=== PATIENT | female | born 1990 | race Caucasian/White ===

== ENCOUNTER 2017-11-28 09:43 | Emergency (ER) | payer OTHER, SELFPAY ==
[2017-11-28 11:53] LABS: Urine Blood NEGATIVE (NEG); Urine Glucose NEGATIVE (NEG); Urine Protein NEGATIVE (NEG)
[2017-11-28 11:56] LABS: Urine Bacteria <20 /HPF (<20); Urine Culture Reflex Order NOT NEEDED; Urine RBC NONE SEEN /HPF (NONE SEEN)
[2017-11-28] MEDS ORDERED: ONDANSETRON 4 MG/2 ML VIAL ONE (11:57)
[2017-11-28] MEDS ORDERED: FENTANYL CITR 100 MCG/2 ML ONE (11:57)
[2017-11-28] MEDS ORDERED: NA CHLORIDE 0.9% 1,000 ML ONE ×2 (11:57)
[2017-11-28] MEDS ORDERED: CIPROFLOXACIN 400mg IV 400 MG/200 ML BAG IV ONE (11:58)
[2017-11-28] MEDS ORDERED: METRONIDAZOLE 500mg IVPB 500 MG/100 ML BAG IV ONE (11:58)
[2017-11-28 12:03] LABS: Absolute Lymphocytes (CBC) 2.6 K/uL (0.7-4.9); Absolute Monocytes 0.4 K/uL (0.1-1.3); Basophils % 0.6 % (0-1.3); Eosinophils % 1.1 % (0-4.4); Lymphocytes % 21.2 % (15.3-44.8); MCH 30.4 pg (27.0-35.0); MCV 90.8 fL (80-100); MPV 9.3 fL (7.6-11.3); Monocytes % 3.6 % (3.3-12.3); RBC Red Blood Cell Count 4.41 M/uL (3.86-4.86)
[2017-11-28 12:07] LABS: Bicarbonate 24 mEq/L (21-31); Glucose Level 93 mg/dL (65-120); Lipase 14 U/L (22-51); Potassium 4.6 mEq/L (3.6-5.0); Sodium Level 136 mEq/L (135-145)
[2017-11-28 12:14] LABS: ALT/SGPT 12 IU/L (10-60); AST/SGOT 13 IU/L (10-42); Albumin 4.4 g/dL (3.2-5.5); Alkaline Phosphatase 79 IU/L (42-121); Amylase Level 32 U/L (28-100); BUN Blood Urea Nitrogen 12 mg/dL (6-20); Bilirubin Direct < 0.1 mg/dL (0-0.2); Bilirubin Total 0.5 mg/dL (0.3-1.2); Protein, Total 7.7 g/dL (6.0-8.3)
--- NOTE | 2017-11-28 14:10 | RAD REPORT ---
EXAM DESCRIPTION: CTAbdomen Pelvis W Contrast - 11/28/2017 2:01 pm CLINICAL HISTORY: Abdominal pain. Diarrhea. COMPARISON: None. TECHNIQUE: Biphasic CT imaging of the abdomen and pelvis was performed with 100 ml non-ionic IV cont rast. All CT scans are performed using dose optimization technique as appropriate and may include automated exposure control or mA/KV adjustment according to patient size. FINDINGS: The lung bases are clear. The liver, spleen, pancreas, adrenal glands and kidneys are within normal limits. No bowel obstruction, free air, free fluid or abscess. The appendix appears surgically absent. No e vidence of significant lymphadenopathy. No suspicious bony findings. IMPRESSION: No acute intra-abdominal or pelvic finding.
--- NOTE | 2017-11-28 14:23 | EDPHYS ---
Physician Documentation [facility] Name: Macey Sands Age: 27 yrs Sex: Female : 1990 Arrival Date: 11/28/2017 Time: 09:47 Bed 15 Private MD: ED Physician Dev Vasquez HPI: 11/28 11:46 This 27 yrs old Female presents to ER via Wheelchair with complaints of lauren Bloody Stools, Back Pain. 11:46 The patient presents with pain that is chronic. lauren ENGINE BOSS: 10:22 LMP 11/25/2017 tw2 Historical: - Allergies: 10:22 No Known Allergies; tw2 - Home Meds: 10:22 None [Active]; tw2 - PMHx: 10:22 Degenerative disc disease; scoliosis; tw2 - PSHx: 10:22 ; Appendectomy; tw2 - Immunization history:: Adult Immunizations up to date. - Social history:: Smoking status: Patient uses tobacco products, 5-10 cigarettes a day. ROS: 11:48 Constitutional: Negative for fever, chills, and weight loss, Eyes: Negative for injury, lauren pain, redness, and discharge, ENT: Negative for injury, pain, and discharge, Neck: Negative for injury, pain, and swelling, Cardiovascular: Negative for chest pain, palpitations, and edema, Respiratory: Negative for shortness of breath, cough, wheezing, and pleuritic chest pain, Back: Negative for injury and pain, : Negative for injury, bleeding, discharge, and swelling, MS/Extremity: Negative for injury and deformity, Skin: Negative for injury, rash, and discoloration, Neuro: Negative for headache, weakness, numbness, tingling, and seizure, Psych: Negative for depression, anxiety, suicide ideation, homicidal ideation, and hallucinations, Allergy/Immunology: Negative for hives, rash, and allergies, Endocrine: Negative for neck swelling, polydipsia, polyuria, polyphagia, and marked weight changes, Hematologic/Lymphatic: Negative for swollen nodes, abnormal bleeding, and unusual bruising. 11:48 Abdomen/GI: Positive for abdominal pain, rectal bleeding, of the right upper quadrant and right lower quadrant. Exam: 11:48 Constitutional: This is a well developed, well nourished patient who is awake, alert, lauren and in no acute distress. Head/Face: Normocephalic, atraumatic. Eyes: Pupils equal round and reactive to light, extra-ocular motions intact. Lids and lashes normal. Conjunctiva and sclera are non-icteric and not injected. Cornea within normal limits. Periorbital areas with no swelling, redness, or edema. ENT: Nares patent. No nasal discharge, no septal abnormalities noted. Tympanic membranes are normal and external auditory canals are clear. Oropharynx with no redness, swelling, or masses, exudates, or evidence of obstruction, uvula midline. Mucous membranes moist. Neck: Trachea midline, no thyromegaly or masses palpated, and no cervical lymphadenopathy. Supple, full range of motion without nuchal rigidity, or vertebral point tenderness. No Meningismus. Chest/axilla: Normal chest wall appearance and motion. Nontender with no deformity. No lesions are appreciated. Cardiovascular: Regular rate and rhythm with a normal S1 and S2. No gallops, murmurs, or rubs. Normal PMI, no JVD. No pulse deficits. Respiratory: Lungs have equal breath sounds bilaterally, clear to auscultation and percussion. No rales, rhonchi or wheezes noted. No increased work of breathing, no retractions or nasal flaring. Back: No spinal tenderness. No costovertebral tenderness. Full range of motion. Female : Normal external genitalia. Skin: Warm, dry with normal turgor. Normal color with no rashes, no lesions, and no evidence of cellulitis. MS/ Extremity: Pulses equal, no cyanosis. Neurovascular intact. Full, normal range of motion. Neuro: Awake and alert, GCS 15, oriented to person, place, time, and situation. Cranial nerves II-XII grossly intact. Motor strength 5/5 in all extremities. Sensory grossly intact. Cerebellar exam normal. Normal gait. Psych: Awake, alert, with orientation to person, place and time. Behavior, mood, and affect are within normal limits. 11:48 Abdomen/GI: Inspection: abdomen appears normal, Bowel sounds: Palpation: mild abdominal tenderness, in the right upper quadrant and right lower quadrant. Vital Signs: 10:22 BP 125 / 82; Pulse 70; Resp 16; Temp 97.6; Pulse Ox 99% on R/A; Weight 83.91 kg (R); tw2 Height 5 ft. 3 in. (160.02 cm) (R); Pain 4/10; 11:23 BP 103 / 77; Pulse 60; Resp 17; Pulse Ox 98% on R/A; ae1 14:26 BP 100 / 69; Pulse 63; Resp 16; Pulse Ox 98% on R/A; ae1 10:22 Body Mass Index 32.77 (83.91 kg, 160.02 cm) tw2 MDM: 10:59 Patient medically screened. [facility] 12:30 Data reviewed: vital signs, nurses notes, lab test result(s), EKG, radiologic studies, [facility] CT scan, plain films. 11/28 11:23 Order name: Amylase, Serum ae1 11/28 11:23 Order name: Basic Metabolic Panel ae1 11/28 11:23 Order name: CBC with Diff; Complete Time: 12:19 ae1 11/28 11:23 Order name: Creatinine for Radiology; Complete Time: 12:19 ae1 11/28 11:23 Order name: Hepatic Function; Complete Time: 12:19 ae1 11/28 11:23 Order name: Lipase; Complete Time: 12:19 ae1 11/28 11:23 Order name: Urine Microscopic Only; Complete Time: 12:19 ae1 11/28 11:24 Order name: Amylase Level; Complete Time: 12:19 EDMS 11/28 11:24 Order name: Basic Metabolic Panel; Complete Time: 12:19 EDMS 11/28 11:40 Order name: Urine Dipstick--Ancillary (enter results); Complete Time: 12:19 ag 11/28 11:40 Order name: Urine --Ancillary (enter results); Complete Time: 12:19 ag 11/28 11:45 Order name: CT Abd/Pelvis - W/Contrast; Complete Time: 14:22 lauren 11/28 11:23 Order name: IV Saline Lock; Complete Time: 11:24 ae1 11/28 11:23 Order name: Labs collected and sent; Complete Time: 11:49 ae1 11/28 11:23 Order name: Urine Dipstick-Ancillary (obtain specimen); Complete Time: 11:49 ae1 Administered Medications: 12:00 Drug: NS 0.9% 1000 ml Route: IV; Rate: 1 bolus; Site: right antecubital; ae1 12:01 Drug: Zofran 4 mg Route: IVP; Site: right antecubital; ae1 14:28 Follow up: Response: No adverse reaction ae1 12:03 Drug: fentaNYL (PF) 25 mcg Route: IVP; Site: right antecubital; ae1 14:27 Follow up: Response: Pain is decreased ae1 12:07 Drug: Flagyl 500 mg Volume: 100 ml; Route: IVPB; Rate: 200 ml/hr; Infused Over: 30 ae1 mins; Site: right antecubital; 12:27 Drug: Cipro 400 mg Volume: 200 ml; Route: IVPB; Infused Over: 60 mins; Site: right ae1 antecubital; Point of Care Testing: Guaiac: 12:30 Stool Guaiac: Negative; Stool Hemoccult Control: Pass; lauren Disposition: 11/28/17 14:23 Discharged to Home. Impression: Abdominal tenderness, Gastrointestinal hemorrhage, unspecified, Elevated white blood cell count. - Condition is Stable. - Discharge Instructions: Abdominal Pain, Adult, Gastrointestinal Bleeding, Abdominal Pain, Adult, [id number], Gastrointestinal Bleeding, [id number]. - Prescriptions for Bentyl 20 mg Oral Tablet - take 1 tablet by ORAL route every 6 hours As needed; 20 tablet. Flagyl 500 mg Oral Tablet - take 1 tablet by ORAL route every 8 hours for 10 days; 21 tablet. Pepcid 20 mg Oral Tablet - take 1 tablet by ORAL route every 12 hours for 10 days; 20 tablet. Zofran 4 mg Oral Tablet - take 1 tablet by ORAL route every 12 hours As needed; 20 tablet. Cipro 500 mg Oral Tablet - take 1 tablet by ORAL route every 12 hours for 7 days; 14 tablet. - Medication Reconciliation Form, Thank You Letter, Antibiotic Education, Prescription Opioid Use, Family Work Release form. - Follow up: Private Physician; When: 2 - 3 days; Reason: Recheck today's complaints, Continuance of care, Re-evaluation by your physician. Follow up: Rivera England; When: 2 - 3 days; Reason: Recheck today's complaints, Re-evaluation by your physician. - Problem is new. - Symptoms have improved. Signatures: Dispatcher [employer] Dev Gabriel MD MD cha Wise, Tara, RN RN tw2 Chapincito Elder RN RN ae1 Corrections: (The following items were deleted from the chart) 14:10 11:24 TYPE AND SCREEN+[id number] ordered. EDMS EDMS
--- NOTE | 2017-11-28 14:23 | ER ---
Nurse's Notes [facility] Name: Macey Sands Age: 27 yrs Sex: Female : 1990 Arrival Date: 11/28/2017 Time: 09:47 Bed 15 Private MD: Diagnosis: Abdominal tenderness;Gastrointestinal hemorrhage, unspecified;Elevated white blood cell count Presentation: 11/28 10:20 Presenting complaint: Patient states: "for the past 3 times today it has been diarrhea tw2 and clots of blood, i ended my period 3 days ago but this is different". Transition of care: patient was not received from another setting of care. Onset of symptoms. Care prior to arrival: None. 10:20 Method Of Arrival: Wheelchair tw2 10:20 Acuity: JANICE 3 tw2 Triage Assessment: 10:22 General: Appears in no apparent distress. well groomed, Behavior is calm, cooperative, tw2 appropriate for age. Pain: Complains of pain in left low back and right low back. GI: Abdomen is flat, non-distended. OIL AGENT: 10:22 LMP 11/25/2017 tw2 Historical: - Allergies: 10:22 No Known Allergies; tw2 - Home Meds: 10:22 None [Active]; tw2 - PMHx: 10:22 Degenerative disc disease; scoliosis; tw2 - PSHx: 10:22 ; Appendectomy; tw2 - Immunization history:: Adult Immunizations up to date. - Social history:: Smoking status: Patient uses tobacco products, 5-10 cigarettes a day. Screenin:52 Abuse screen: Denies threats or abuse. Nutritional screening: No deficits noted. ae1 Tuberculosis screening: No symptoms or risk factors identified. Fall Risk None identified. Assessment: 11:49 General: Appears uncomfortable, Behavior is cooperative, anxious. Pain: Complains of ae1 pain in posterior aspect of right lateral abdomen and right upper quadrant. Neuro: Level of Consciousness is awake, alert, obeys commands, Oriented to person, place, time, situation, Reports dizziness. Cardiovascular: Patient's skin is warm and dry. Respiratory: Airway is patent Respiratory effort is even, unlabored, Respiratory pattern is regular, symmetrical, Breath sounds are clear bilaterally. Respiratory: Reports shortness of breath on exertion. : No signs and/or symptoms were reported regarding the genitourinary system. Urine is clear. EENT: No signs and/or symptoms were reported regarding the EENT system. Derm: Skin is flushed. Musculoskeletal: No signs and/or symptoms reported regarding the musculoskeletal system. 11:49 GI: Abdomen is round obese, Bowel sounds present X 4 quads. Reports bloody stool. ae1 12:11 Reassessment: Notified CT via telephone that patient completed PO contrast at 1200. ae1 12:28 Reassessment: Patient up to bathroom to have bowel movement. ae1 13:56 Reassessment: Patient transported by wheelchair to CT. ae1 14:09 Reassessment: Per provider, ok to cancel type and screen. Notified Moises in lab via ae1 telephone that TS is cancelled. Vital Signs: 10:22 BP 125 / 82; Pulse 70; Resp 16; Temp 97.6; Pulse Ox 99% on R/A; Weight 83.91 kg (R); tw2 Height 5 ft. 3 in. (160.02 cm) (R); Pain 4/10; 11:23 BP 103 / 77; Pulse 60; Resp 17; Pulse Ox 98% on R/A; ae1 14:26 BP 100 / 69; Pulse 63; Resp 16; Pulse Ox 98% on R/A; ae1 10:22 Body Mass Index 32.77 (83.91 kg, 160.02 cm) tw2 ED Course: 09:47 Patient arrived in ED. mr 10:21 Triage completed. tw2 10:23 Arm band placed on. tw2 10:59 Dev Vasquez MD is Attending Physician. lauren 11:01 Chapincito Elder RN is Primary Nurse. ae1 11:30 Inserted saline lock: 20 gauge in right antecubital area, using aseptic technique. ae1 Blood collected. 11:52 Bed in low position. Call light in reach. Side rails up X 1. Adult w/ patient. Pulse ox ae1 on. NIBP on. 14:01 CT Abd/Pelvis - W/Contrast In Process Unspecified. EDMS 14:22 Rivera England MD is Referral Physician. lauren 14:42 No provider procedures requiring assistance completed. IV discontinued, intact, ae1 bleeding controlled, No redness/swelling at site. Pressure dressing applied. Administered Medications: 12:00 Drug: NS 0.9% 1000 ml Route: IV; Rate: 1 bolus; Site: right antecubital; ae1 12:01 Drug: Zofran 4 mg Route: IVP; Site: right antecubital; ae1 14:28 Follow up: Response: No adverse reaction ae1 12:03 Drug: fentaNYL (PF) 25 mcg Route: IVP; Site: right antecubital; ae1 14:27 Follow up: Response: Pain is decreased ae1 12:07 Drug: Flagyl 500 mg Volume: 100 ml; Route: IVPB; Rate: 200 ml/hr; Infused Over: 30 ae1 mins; Site: right antecubital; 12:27 Drug: Cipro 400 mg Volume: 200 ml; Route: IVPB; Infused Over: 60 mins; Site: right ae1 antecubital; Point of Care Testing: Guaiac: 12:30 Stool Guaiac: Negative; Stool Hemoccult Control: Pass; lauren Outcome: 14:23 Discharge ordered by MD. lauren 14:43 Discharged to home ambulatory, with significant other. ae1 14:43 Condition: stable 14:43 Discharge instructions given to patient, Instructed on discharge instructions, follow up and referral plans. medication usage, Demonstrated understanding of instructions, Prescriptions given X 14:44 Patient left the ED. ae1 Signatures: Dispatcher [employer] EDMS Dev Vasquez MD MD cha Rivera, Maria mr Wise, Tara, RN RN tw2 Chapincito Elder RN RN ae1 Corrections: (The following items were deleted from the chart) 12:20 11:49 GI: Abdomen is round obese, Bowel sounds present X 4 quads. ae1 ae1
[2017-11-28 14:51] VITALS: TEMP 97.6
[2017-11-28 14:52] VITALS: O2SAT 98
[2017-11-28 14:54] VITALS: BP 100/69
== END 2017-11-28 14:44 | disposition home or self-care (01) ==
LOC: ER 09:43
DX: K92.2 Gastrointestinal hemorrhage, unspecified (principal); D72.829 Elevated white blood cell count, unspecified; F17.210 Nicotine dependence, cigarettes, uncomplicated
CPT/HCPCS: 36415; 74177; 80048; 80076; 81003; 81015; 81025; 82150; 83690; 85025; 96374; 96375; 99284; J0744; J2405; J3010; J7030; Q9967